=== PATIENT | male | born 1950 | race Caucasian/White ===

== ENCOUNTER 2019-02-24 05:10 | Day surgery (SDC) | payer MEDICARE, OTHER ==
[2019-02-23 12:41] LABS: HEMATOCRIT 49.9 % (42.0-54.0); HEMOGLOBIN 17.5 g/dL (13.5-17.5); MCH 31.5 pg (26.0-34.0); MCHC 35.1 g/dL (31.0-37.0); MCV 89.7 fL (80.0-100.0); MEAN PLATELET VOLUME 10.8 fL (7.4-10.4); RBC 5.56 10x6/uL (4.20-6.10); RDW 14.6 % (11.5-14.5); WBC 13.9 10x3/uL (4.8-10.8)
[~2019-02-24 05:10] MED LIST: ASPIRIN325 MG; HYDROCHLOROTH12.5 M1 PO; LIPITOR40 MG PO; VITAMIN D5000 UNIT PO
[2019-02-24 05:43] VITALS: BP 124/80; BMI 32.0
--- NOTE | 2019-02-24 08:45 | NUR ---
PATIENT POSITIONED PRONE ALL AREAS PADDED AND SECURED, GENITALS CHECKED AND NO IMPINGEMENT, TWORSATISH
--- NOTE | 2019-02-24 11:49 | NUR ---
1052 IV DC'D. CATHETER INTACT. NO BLEEDING AT SITE. BANDAID APPLIED.
--- NOTE | 2019-03-17 10:36 | OP ---
PATIENT NAME: LAURENT LEE MEDICAL RECORD: [id number] :48 LOCATION:[facility] ADMISSION DATE: SURGEON: RUTH NORTON MD DATE OF OPERATION: 02/24/2019 PREOPERATIVE DIAGNOSES: Severe lumbar spinal stenosis L3-L4 with right L3-L4 foraminal stenosis. PROCEDURE: Lumbar laminectomy, medial facetectomy and foraminotomy L3-L4 on the right. SURGEON: Ruth Norton MD DESCRIPTION AND TECHNIQUE: After induction of general endotracheal anesthesia, the patient was rolled prone on a Adolfo frame. Lumbar spine was prepped and draped in usual sterile fashion. Fluoroscopic x-ray and spinal needle localized the L3-L4 interspace on the right side. A stab incision was created with a #11 blade. Series of dilators were used to advance a METRx retractor at L3-L4 interspace on the right side. The level was confirmed with fluoroscopic x-ray. A Mid[employer] Carlos Enrique drill and microscope were used to perform a laminectomy, medial facetectomy, and foraminotomy at L3-L4 on the right. Following this, hypertrophied ligamentum flavum was removed with Cloward rongeurs. Foraminotomy was carried out with Cloward rongeurs as well. Following this, right L3 and L4 nerve roots were decompressed well. Meticulous hemostasis was maintained throughout the wound. The wound was irrigated with copious amounts of Ancef irrigant solution. The fascia was closed with 2-0 Vicryl suture. Subdermal layer was closed with 3-0 Vicryl suture. The skin was closed with belgica. A sterile dressing was applied to the wound. The patient was awakened in good condition and taken to recovery. All counts were reported as correct. Estimated blood loss was minimal. TRANSINT:[id number] Voice Confirmation ID: [id number] DOCUMENT ID: [id number] RUTH NORTON MD at 1036 CC: [id number] DICTATION DATE: 03/08/19 0947 LITIGATION LEGAL SECRETARY: 03/08/19 1115 [facility] 02/24/19 [place] [address]
== END 2019-02-24 11:16 | disposition home or self-care (01) ==
LOC: D.OPS 05:10 → D.PAN 07:30 → D.OPS 07:30
PROVIDERS: Anesthesiology; ATTEND Neurological Surgery
DX: M48.061 Spinal stenosis, lumbar region without neurogenic claudication (principal); Z01.812 Encounter for preprocedural laboratory examination